=== PATIENT | male | born 1960 | race Two or more races ===

== ENCOUNTER 2019-09-06 10:38 | Inpatient (IN) | payer BC, OTHER ==
[~2019-09-06] VITALS: Ht 175.3 cm; Wt 93.2 kg
[2019-09-06] MEDS ORDERED: SODIUM CHLORIDE 0.9% 500 ML IVB ONE (11:01)
[2019-09-06 11:20] LABS: Basophils # (auto) 0.1 10 ^3/uL (0-0.2); Basophils % (auto) 0.6 % (0.0-2.0); Eosinophils # (auto) 0.2 10 ^3/uL (0-0.8); Eosinophils % (auto) 2.1 % (0.0-7.0); Hematocrit 46.6 % (41.0-53.0); Hemoglobin 16.3 g/dL (13.5-17.5); Lymphocytes # (auto) 1.7 10 ^3/uL (0.4-5.4); Lymphocytes % (auto) 16.3 % (10.0-50.0); Mean Corpuscular Hemoglobin 30.4 pg (28.0-32.0); Mean Corpuscular Volume 86.7 fL (80.0-100.0); Monocytes # (auto) 1.1 10 ^3/uL (0-1.3); Monocytes % (auto) 11.1 % (0.0-12.0); Neutrophils # (auto) 7.1 10 ^3/uL (1.6-8.6); Neutrophils % (auto) 69.9 % (37.0-80.0); Platelet Count (auto) 209 10^3/uL (140-450); Red Blood Cells 5.37 10^6/uL (4.5-5.90); Red Cell Distribution Width 12.7 % (11.8-14.3); White Blood Cell 10.2 10^3/uL (4.4-10.8)
[2019-09-06 11:40] LABS: Albumin 3.6 g/dL (3.4-5.0); Anion Gap 5 (5-15); Blood Urea Nitrogen 12 mg/dL (7-18); Carbon Dioxide 29 mmol/L (21-32); Chloride 102 mmol/L (98-107); Glucose 84 mg/dL (74-106); Lipase 80 U/L (73-393); Potassium 4.2 mmol/L (3.5-5.1); Sodium 136 mmol/L (136-145)
[2019-09-06 11:45] LABS: Alanine Aminotransferase 40 U/L (16-61); Alkaline Phosphatase 149 U/L (45-117); Aspartate Aminotransferase 21 U/L (15-37); BUN/Creatinine Ratio 15.8; Bilirubin, Total 1.9 mg/dL (0.2-1.0); GFR African American 135 mL/min; GFR Non-African American 112 mL/min; Total Protein 8.5 g/dL (6.4-8.2)
[2019-09-06] MEDS ORDERED: IOHEXOL 300 MG/ML 100ML BOTTLE IJ ONE (14:55)
[2019-09-06] MEDS ORDERED: MORPHINE SULF INJ 2 MG/ML SYRINGE 1ML IV PRN ×2 (16:15)
[2019-09-06] MEDS ORDERED: NITROGLYCERIN 0.4 MG SL TAB SL PRN (16:15)
[2019-09-06] MEDS ORDERED: ONDANSETRON HCL 4 MG/2 ML VIAL IV PRN (16:15)
[2019-09-06] MEDS: SODIUM CHLORIDE 0.9% 1,000 ML IV SCH (16:15)
[2019-09-06] MEDS ORDERED: IOHEXOL 350 MG/ML 100ML IJ ONE (16:23)
--- NOTE | 2019-09-06 18:00 | NUR ---
PATIENT RESTING IN BED. NO S/S OF DISTRESS NOTED AT THIS TIME. PATIENT O2 SATURATIONS AT 95% ON ROOM AIR. PATIENT DENIES ANY SHORTNESS OF BREATH. IV TO RAC 20 GAUGE. ON TELEMETRY #13 SR 80'S. PATIENT DENIES ANY PAIN. BED IN LOWEST LOCKED POSITION WITH CALL LIGHT WITHIN REACH.
[2019-09-06 18:45] LABS: INR 1.12 (0.9-1.15); Partial Thromboplastin Time 29.3 sec (23.64-32.05)
[2019-09-06 18:53] VITALS: BP 146/79
--- NOTE | 2019-09-06 19:35 | NUR ---
Opening Shift Note Assumed care of patient, awake and alert. No S/S of distress/SOB or pain. Instructed on POC and to call for assist PRN, will continue to monitor for changes Q1hr and PRN.
[2019-09-06] MEDS ORDERED: IBUP800T24 PO (19:59)
[2019-09-06] MEDS ORDERED: CYCL1TAB18 PO (19:59)
[2019-09-06] MEDS: ENOXAPARIN SOD 100 MG/1 ML SYRINGE SC SCH (21:34)
[2019-09-07 00:24] VITALS: BP 117/75
[2019-09-07] MEDS: SODIUM CHLORIDE 0.9% 1,000 ML IV SCH ×3 (03:38→22:29)
[2019-09-07 05:36] VITALS: BP 113/80
[2019-09-07 07:11] LABS: Potassium 3.8 mmol/L (3.5-5.1)
[2019-09-07 07:15] LABS: Albumin 2.8 g/dL (3.4-5.0); BUN/Creatinine Ratio 18.3; Calcium 8.3 mg/dL (8.5-10.1)
[2019-09-07 07:55] LABS: Bilirubin, Total 1.5 mg/dL (0.2-1.0); Total Protein 6.7 g/dL (6.4-8.2)
--- NOTE | 2019-09-07 08:00 | NUR ---
ASSESSMENT NOTE PT IS ALERT ORIENTED X4, RESTING IN BED COMFORTABLY, NO DISTRESS NOTED, ABLE TO SELF REPOSITION AND IDENTIFY HIS NEEDS, PAIN 0/10, ON BED REST, USE URINAL NEEDED
[2019-09-07 08:52] VITALS: BP 141/80
[2019-09-07] MEDS: FAMOTIDINE 20 MG TAB PO SCH (09:01)
[2019-09-07] MEDS: ENOXAPARIN SOD 100 MG/1 ML SYRINGE SC SCH (09:02)
[2019-09-07 09:48] LABS: Urine Bacteria NONE SEEN /hpf (None Seen); Urine Blood Negative /uL (Negative); Urine Specific Gravity 1.007 (1.001-1.035); Urine WBC None Seen /hpf (0 - 3)
--- NOTE | 2019-09-07 10:26 | NUR ---
URINE SAMPLE SENT TO LAB FOR UA
--- NOTE | 2019-09-07 10:30 | NUR ---
DR GROSSMAN IS HERE FOLLOWING UP ON PT WITH NEW ORDERS
--- NOTE | 2019-09-07 11:22 | NUR ---
DR LEOPOLDO ELLIOTT AT BED SIDE, FOLLOWING UP ON PT, PT HAS COLONOSCOPY ON THE PREVIOUS YEARS, REQUESTED TO CALL HIS XANDER AND FID OUT WHEN AND WHERE AND OBTAIN A COPY
--- NOTE | 2019-09-07 11:36 | NUR ---
CALLED PATIENT'S XANDER, SAID THAT SHE WILL FIND OUT THE LOCATION FOR ME AND CALL ME BACK
--- NOTE | 2019-09-07 11:50 | NUR ---
DR VILLALOBOS'AT BED SIDE FOLLOWING UP ON PT, MADE AWARE THAT TEMP IS 100.3, COOL MEASURES INITIATED, NEW ORDERS OBTAIN
[2019-09-07 13:00] VITALS: BP 137/73
--- NOTE | 2019-09-07 13:00 | NUR ---
TOLERATED LUNCH WELL, CONTINUE MONITORING
[2019-09-07] MEDS: ACETAMINOPHEN 500 MG TAB PO PRN ×2 (13:54→22:28)
[2019-09-07 17:00] VITALS: BP 125/85
--- NOTE | 2019-09-07 18:27 | NUR ---
PT IS EATING DINNER, TOLERATED WELL, AWARE THAT HE WILL BE NPO AFTER MIS NIGHT FOR LIVER BIOPSY TOMORROW
--- NOTE | 2019-09-07 19:30 | NUR ---
OPENING NOTE REPORT RECEIVED FROM DAY SHIFT RN PATIENT IS RESTING IN BED, NO S/S OF DISTRESS NOTED. POC DISCUSSED, ALL QUESTIONS ANSWERED. WILL MONITOR Q1H PRN THROUGHOUT SHIFT, CALL LIGHT WITHIN REACH.
[2019-09-07 22:00] VITALS: BP 135/68
--- NOTE | 2019-09-07 22:28 | NUR ---
TEMP PATIENT HAS A TEMP OF 100.4F COOLING MEASURES INITIATED (ICE PACKS UNDER AXILLA, ICE WATER, BLANKETS REMOVED), TYLENOL GIVEN ORDERED WILL REASSESS TEMP IN ONE HOUR
--- NOTE | 2019-09-07 23:28 | NUR ---
TEMP RECHECK TEMP NOW 99.2F. COOLING MEASURES STILL IN PLACE WILL CONTINUE TO MONITOR
--- NOTE | 2019-09-07 23:39 | NUR ---
REPORT/SBAR GIVEN TO LUISITO GIANG TO ASSUME CARE OF PATIENT PATIENT STABLE AT THIS TIME
--- NOTE | 2019-09-07 23:39 | NUR ---
Received report/SBAR from Emi. Patient sleeping at the time. No signs of distress or pain.
[2019-09-08] VITALS (21 sets, daily range): BP systolic 101–143; BP diastolic 51–91
[2019-09-08] MEDS ORDERED: LIDOCAINE 2%HCL (LOCAL ANESTH.) INJ 20ML MDV ONE (09:21)
[2019-09-08] MEDS ORDERED: GELATIN 1 SPONGE SIZE 50 TOP ONE (09:23)
[2019-09-08 09:36] LABS: INR 1.07 (0.9-1.15); Partial Thromboplastin Time 31.4 sec (23.64-32.05)
[2019-09-08 09:49] LABS: Albumin 2.8 g/dL (3.4-5.0); Calcium 8.5 mg/dL (8.5-10.1); Potassium 3.7 mmol/L (3.5-5.1)
[2019-09-08 09:52] LABS: BUN/Creatinine Ratio 12.5; Bilirubin, Total 1.1 mg/dL (0.2-1.0); Total Protein 7.5 g/dL (6.4-8.2)
[2019-09-08] MEDS: FAMOTIDINE 20 MG TAB PO SCH ×2 (10:00→18:42)
[2019-09-08] MEDS ORDERED: fentaNYL CITRATE 100 MCG/2 ML VL IV ONE (10:30)
[2019-09-08] MEDS ORDERED: MIDAZOLAM HCL 1MG/1ML-2 ML VIAL IV ONE (10:30)
--- NOTE | 2019-09-08 10:30 | NUR ---
OUT TO RADIOLOGY VIA HOSPITAL BED WITH FEI RN PT STABLE, NO DISTRESS NOTED
--- NOTE | 2019-09-08 11:00 | NUR ---
PATIENT ARRIVED IN C.T. DEPT PER BED FOR U.S. AND C.T. GUIDED BIOPSY OF LIVER MASS. PATIENT GIVEN LOCAL ANESTHETIC PER DR BENRAL. PATIENT STATES OF FEELING ANXIOUS - MUCH SUPPORT AND REASSURANCE GIVEN WELL DEEP BREATHING AND RELAXATION EXERCISES - PATIENT COMPLIANT. VS Q5MIN - SEE VITALS FLOW SHEET. PATIENT GIVEN VERSED 1MG AT 1100 IVP AND FENTANYL 50MCG IVP PER MD ORDERS. SAO2 DECREASED TO 92% AT 1125 - O2 APPLIED AT 2L PER NC - SAO2 95-97% AFTER O2 APPLIED. PROCEDURE COMPLETED AT 1140 - BANDAID APPLIED TO RUQ ABD. PATIENT GALLITO. PROCEDURE WELL UNDER MOD SEDATION. PATIENT IN STABLE CONDITION UPON RETURN TO ROOM. AT 1145 RN ACCOMPANIED PATIENT TO ROOM 246 PER BED WITH TELE MONITOR IN PLACE AND PORTABLE O2 ON @ 2L PER NC. REPORT GIVEN TO KVGN JORGE RE: PATIENT POSITIONING RIGHT SIDE DOWN AND VS Q15MIN X 1 HR AND Q3O MIN X 1 HR. SPECIMEN TAKEN TO LAB FOR PATHOLOGY TESTING.
--- NOTE | 2019-09-08 11:47 | NUR ---
PT IS BACK TO HIS ROOM VIA HOSPITAL BED, PT IS ALERT ORIENTED X4, BAND AID NOTED AT RT SIDE OF THE ABDOMEN AREA, NO SIGNS OF BLEEDING NOTED, PT INSTRUCTED TO LEAN TOWARD THE RT SIDE TO AVOID ANY BLEEDING, PER RONNY JORGE PT NEED VS Q 15 MIN X4 AND EVERY 30 X2, PT IS STABLE BUT IS FEEKING NERVOUS, REQUESTED TO CALL HIS TO ASURE HER THAT EVERYTHING IS OKAY
[2019-09-08] MEDS: SODIUM CHLORIDE 0.9% 1,000 ML IV SCH ×2 (12:00→18:15)
--- NOTE | 2019-09-08 12:05 | NUR ---
CALLED PATIENT'S XANDER , ASURE HER THAT HER IS WELL AND STABLE
--- NOTE | 2019-09-08 12:14 | NUR ---
DR VILLALOBOS AT BED SIDE FOLLOWING UP ON PT
--- NOTE | 2019-09-08 13:51 | NUR ---
PT IS SLEEPING AT HIS RT SIDE, NO DISTRESS NOTED
[2019-09-08] MEDS: ACETAMINOPHEN 500 MG TAB PO PRN (18:49)
--- NOTE | 2019-09-08 19:30 | NUR ---
OPENING NOTE REPORT RECEIVED FROM DAY SHIFT RN PATIENT IS A/OX4 RESTING IN BED. NO S/S OF DISTRESS NOTED. PATIENT IS S/P LIVER BIOPSY WITH BANDAID IN PLACE TO RIGHT UPPER ABDOMEN. NO DRAINAGE NOTED. POC DISCUSSED WITH PATIENT, ALL QUESTIONS ANSWERED. WILL MONITOR Q1HPRN THROUGHOUT SHIFT, CALL LIGHT WITHIN REACH.
[2019-09-08] MEDS: ENOXAPARIN SOD 100 MG/1 ML SYRINGE SC SCH (21:45)
[2019-09-09] MEDS: ACETAMINOPHEN 500 MG TAB PO PRN ×2 (03:44→22:20)
--- NOTE | 2019-09-09 03:44 | NUR ---
PAIN PATIENT C/O 3/10 PAIN TO RIGHT ABDOMEN AT INCISION SITE OF LIVER BIOPSY. PATIENT REQUESTED FOR TYLENOL FOR THE PAIN. TYLENOL GIVEN ORDERED. SEE EMAR FOR DETAILS WILL REASSESS IN ONE HOUR
--- NOTE | 2019-09-09 04:44 | NUR ---
PAIN REASSESSMENT PATIENT NOW COMFORTABLE, DENIES ANY PAIN
[2019-09-09 05:00] VITALS: BP 129/80
[2019-09-09] MEDS: SODIUM CHLORIDE 0.9% 1,000 ML IV SCH ×3 (05:35→23:55)
--- NOTE | 2019-09-09 07:27 | NUR ---
CLOSING PATIENT IS RESTING COMFORTABLY IN BED. NO S/S OF DISTRESS. CALL LIGHT WITHIN REACH. CARE ENDORSED TO DAYSHIFT LUISITO PASTOR
[2019-09-09 07:30] LABS: Basophils # (auto) 0 10 ^3/uL (0-0.2); Basophils % (auto) 0.6 % (0.0-2.0); Eosinophils # (auto) 0.3 10 ^3/uL (0-0.8); Eosinophils % (auto) 3.6 % (0.0-7.0); Hematocrit 42.2 % (41.0-53.0); Hemoglobin 14.8 g/dL (13.5-17.5); Lymphocytes # (auto) 1.4 10 ^3/uL (0.4-5.4); Lymphocytes % (auto) 17.2 % (10.0-50.0); Mean Corpuscular Hemoglobin 30.2 pg (28.0-32.0); Mean Corpuscular Hgb Conc. 35.2 g/dL (32.0-36.0); Monocytes # (auto) 0.8 10 ^3/uL (0-1.3); Monocytes % (auto) 10.4 % (0.0-12.0); Neutrophils # (auto) 5.4 10 ^3/uL (1.6-8.6); Neutrophils % (auto) 68.2 % (37.0-80.0); Nucleated Red Blood Cells % 0.1 %; Platelet Count (auto) 232 10^3/uL (140-450); Red Blood Cells 4.91 10^6/uL (4.5-5.90); Red Cell Distribution Width 12.4 % (11.8-14.3)
[2019-09-09 07:48] LABS: Albumin 2.9 g/dL (3.4-5.0); Calcium 9.2 mg/dL (8.5-10.1)
[2019-09-09 07:51] LABS: BUN/Creatinine Ratio 13.6; Bilirubin, Total 1.1 mg/dL (0.2-1.0); Total Protein 7.8 g/dL (6.4-8.2)
[2019-09-09 09:00] VITALS: BP 127/68
[2019-09-09] MEDS: ENOXAPARIN SOD 100 MG/1 ML SYRINGE SC SCH (10:35)
[2019-09-09] MEDS ORDERED: FAMOTIDINE 20 MG TAB PO ONE (11:15)
--- NOTE | 2019-09-09 12:15 | NUR ---
DR. ARORA AT BEDSIDE WITH PATIENT. PATIENT HAS COMPLAINTS OF BLOODY SPUTUM AND PAIN TO THE RIGHT TESTICLE.
[2019-09-09 13:00] VITALS: BP 130/61
--- NOTE | 2019-09-09 14:23 | NUR ---
PATIENT DOWN FOR ULTRASOUND
[2019-09-09 17:00] VITALS: BP 120/81
--- NOTE | 2019-09-09 19:35 | NUR ---
Opening Shift Note Assumed care of patient, awake and alert. No S/S of distress/SOB or pain. Bed in lowest locked position, side rails up x2, call light within reach. Instructed on POC and to call for assist PRN, will continue to monitor for changes Q1hr and PRN.
[2019-09-09] MEDS: ENOXAPARIN SOD 80 MG/0.8ML SYRINGE SC SCH (21:51)
[2019-09-09 22:00] VITALS: BP 119/75
--- NOTE | 2019-09-09 23:20 | NUR ---
Pain Patient reporting 5/10 pain to back, requesting Tylenol. Tylenol administered at 22:20 (see emar). Pain reassessed at this time, patient lying in bed, eyes closed, respirations even and unlabored, appears asleep, no s/s of distress. Will continue to monitor.
[2019-09-10 05:00] VITALS: BP 114/63
[2019-09-10 06:08] LABS: Basophils # (auto) 0.1 10 ^3/uL (0-0.2); Basophils % (auto) 0.7 % (0.0-2.0); Eosinophils # (auto) 0.4 10 ^3/uL (0-0.8); Eosinophils % (auto) 5.1 % (0.0-7.0); Hematocrit 41.5 % (41.0-53.0); Hemoglobin 14.5 g/dL (13.5-17.5); Lymphocytes # (auto) 1.3 10 ^3/uL (0.4-5.4); Lymphocytes % (auto) 16.6 % (10.0-50.0); Mean Corpuscular Hemoglobin 30.2 pg (28.0-32.0); Mean Corpuscular Volume 86.2 fL (80.0-100.0); Monocytes # (auto) 0.8 10 ^3/uL (0-1.3); Monocytes % (auto) 10.5 % (0.0-12.0); Neutrophils # (auto) 5.3 10 ^3/uL (1.6-8.6); Neutrophils % (auto) 67.1 % (37.0-80.0); Platelet Count (auto) 276 10^3/uL (140-450); Red Blood Cells 4.81 10^6/uL (4.5-5.90); Red Cell Distribution Width 12.5 % (11.8-14.3)
[2019-09-10 06:27] LABS: BUN/Creatinine Ratio 20.4; Calcium 9.1 mg/dL (8.5-10.1); Potassium 3.6 mmol/L (3.5-5.1)
--- NOTE | 2019-09-10 06:31 | NUR ---
Closing Note Patient lying in bed, awake and alert. No s/s of distress. Will continue to monitor and endorse care to dayshift RN.
--- NOTE | 2019-09-10 07:15 | NUR ---
Opening Note Received report from lagging machine operator RN. Patient is awake, alert and oriented x4. No signs or symptoms of distress noted a this time. Patient is on 3L NC, respirations even and unlabored, patient denies shortness of breath at this time. Reviewed plan of care with patient, patient verbalized understanding. Bed in low and locked position, call light within reach. Will continue to monitor Q1 hour and PRN.
[2019-09-10 09:00] VITALS: BP 128/68
[2019-09-10] MEDS: ENOXAPARIN SOD 80 MG/0.8ML SYRINGE SC SCH ×2 (09:40→21:14)
[2019-09-10] MEDS: FAMOTIDINE 20 MG TAB PO SCH (09:40)
--- NOTE | 2019-09-10 09:45 | NUR ---
Headache Patient is complaining of headache 4/10 and is requesting Tylenol. Will medicate per orders. Will continue to monitor Q1 hour and PRN.
[2019-09-10] MEDS: ACETAMINOPHEN 500 MG TAB PO PRN (09:47)
--- NOTE | 2019-09-10 10:30 | NUR ---
Pain Reassessment Patient denies pain at this time. Patient resting comfortably in bed, no signs or symptoms of distress noted at this time. Will continue to monitor Q1 hour and PRN.
[2019-09-10] MEDS: SODIUM CHLORIDE 0.9% 1,000 ML IV SCH ×2 (11:52→13:41)
[2019-09-10] MEDS ORDERED: levoFLOXacin 750MG 150 ML IV ONE (13:00)
[2019-09-10 14:02] VITALS: BP 125/69
[2019-09-10 17:00] VITALS: BP 119/81
--- NOTE | 2019-09-10 17:59 | NUR ---
Respiratory culture collected and sent to lab
[2019-09-10] MEDS: HYDROcodone-ACET 5/325MG TAB PO PRN (18:03)
--- NOTE | 2019-09-10 18:03 | NUR ---
Pain Patient complains of pain 8/10 to groin after ambulating and is requesting pain medications. Will medicate per orders.
--- NOTE | 2019-09-10 18:30 | NUR ---
Patient ambulated Patient ambulated to restroom, gait steady. Patient denies shortness of breath at this time. Will continue to monitor Q1 hour and PRN.
--- NOTE | 2019-09-10 18:37 | NUR ---
IV Insertion IV access obtained, via clean sterile technique by inserting 22 gauge catheter to the left hand. IV secured properly. No trauma to site. Patient tolerated well. Will continue to monitor Q1 hour and PRN.
--- NOTE | 2019-09-10 18:38 | NUR ---
IV Removed IV removed from right AC with sterile technique, catheter fully intact. Pressure dressing applied to site. Patient tolerated procedure well. Will continue to monitor Q1 hour and PRN.
--- NOTE | 2019-09-10 19:03 | NUR ---
Pain reassessment Patient resting in bed comfortably, states pain is now 2/10. Will continue to monitor.
--- NOTE | 2019-09-10 19:05 | NUR ---
Closing Note Report given to restaurant shift supervisor RN. No signs or symptoms of distress noted at this time.
[2019-09-10 22:00] VITALS: BP 126/71
[2019-09-11] MEDS: SODIUM CHLORIDE 0.9% 1,000 ML IV SCH ×2 (03:18→17:36)
[2019-09-11] MEDS: HYDROcodone-ACET 5/325MG TAB PO PRN ×3 (04:07→20:43)
[2019-09-11 05:00] VITALS: BP 124/64
--- NOTE | 2019-09-11 05:07 | NUR ---
Pain Patient reporting 6/10 pain to urethral area. Brutus administered at 04:07 (see emar). Pain reassessed at this time, patient lying in bed, eyes closed, respirations even and unlabored, appears asleep, no s/s of distress. Will continue to monitor. Addendum: 09/11/19 at 3466 by SCOTT LICONA RN RN CORRECTION: Back and leg pain after ambulation.
--- NOTE | 2019-09-11 06:31 | NUR ---
Closing Note Patient lying in bed, eyes closed, respirations even and unlabored, appears asleep. No s/s of distress. Will continue to monitor and endorse care to dayshift RN.
--- NOTE | 2019-09-11 07:48 | NUR ---
Opening Note Assumed pt care from [facility] nurse. Pt is a/ox4 with no s/s of distress or SOB. Pt is currently sitting upright in bed with no complaints at this time. Pt is currently on 1.5L NC. Discussed POC with pt; pt verbalized understanding. Safety measures maintained with call light within reach, bed in lowest position and side rails up. Will continue to monitor for changes.
[2019-09-11 09:00] VITALS: BP 124/84
[2019-09-11] MEDS: levoFLOXacin 750MG 150 ML IV SCH (09:48)
[2019-09-11] MEDS: ENOXAPARIN SOD 80 MG/0.8ML SYRINGE SC SCH ×2 (09:48→22:00)
[2019-09-11] MEDS: FAMOTIDINE 20 MG TAB PO SCH (09:48)
--- NOTE | 2019-09-11 09:56 | NUR ---
Dr Hinkle at Bedside MD to see pt. Discussed POC with pt. No new orders. Will continue to monitor.
[2019-09-11 13:00] VITALS: BP 136/80
--- NOTE | 2019-09-11 14:36 | NUR ---
Nutrition Assessment Notes Please refer to link for full assessment notes. Est energy needs: 5954-1295 kcals (17-20 kcal/kgBW) Est protein needs: 62-78 gms/day (0.8-1.0 gm/kgBW) Will continue to monitor and reassess prn. Addendum: 09/11/19 at [address] Amended: Links added.
[2019-09-11 17:00] VITALS: BP 119/76
--- NOTE | 2019-09-11 21:43 | NUR ---
Pain Patient reporting 6/10 pain to back and legs after ambulating from bathroom. [place] administered at 20:43 (see emar). Pain reassessed at this time, patient lying in bed, eyes closed, respirations even and unlabored, appears asleep, no s/s of distress. Will continue to monitor.
[2019-09-11 22:00] VITALS: BP 135/73
[2019-09-12 05:00] VITALS: BP 133/82
[2019-09-12 07:28] LABS: Basophils # (auto) 0.1 10 ^3/uL (0-0.2); Basophils % (auto) 0.9 % (0.0-2.0); Eosinophils # (auto) 0.4 10 ^3/uL (0-0.8); Eosinophils % (auto) 7.1 % (0.0-7.0); Hematocrit 39.8 % (41.0-53.0); Hemoglobin 14.2 g/dL (13.5-17.5); Lymphocytes % (auto) 17.3 % (10.0-50.0); Mean Corpuscular Hemoglobin 30.7 pg (28.0-32.0); Mean Corpuscular Hgb Conc. 35.7 g/dL (32.0-36.0); Mean Corpuscular Volume 86.2 fL (80.0-100.0); Monocytes # (auto) 0.6 10 ^3/uL (0-1.3); Monocytes % (auto) 9.8 % (0.0-12.0); Neutrophils # (auto) 3.8 10 ^3/uL (1.6-8.6); Neutrophils % (auto) 64.9 % (37.0-80.0); Nucleated Red Blood Cells % 0.1 %; Platelet Count (auto) 307 10^3/uL (140-450); Red Blood Cells 4.62 10^6/uL (4.5-5.90); Red Cell Distribution Width 12.3 % (11.8-14.3); White Blood Cell 5.9 10^3/uL (4.4-10.8)
--- NOTE | 2019-09-12 08:30 | NUR ---
OPENING SHIFT NOTE: PATIENT A/OX4 AWAKE, RESTING IN BED. UPDATED ON PLAN OF CARE. PATIENT ACTIVE IN PLANNING CARE AND SELF-CARE. FALL PRECAUTIONS IN PLACE. EDUCATED USE OF CALL LIGHT. PATIENT RETURNED DEMONSTRATION. WILL CONTINUE TO MONITOR.
[2019-09-12 08:36] VITALS: BP 125/79
[2019-09-12] MEDS: HYDROcodone-ACET 5/325MG TAB PO PRN ×2 (09:05→20:23)
[2019-09-12] MEDS: levoFLOXacin 750MG 150 ML IV SCH (09:05)
[2019-09-12] MEDS: ENOXAPARIN SOD 80 MG/0.8ML SYRINGE SC SCH (09:05)
[2019-09-12] MEDS: FAMOTIDINE 20 MG TAB PO SCH (09:05)
[2019-09-12] MEDS: SODIUM CHLORIDE 0.9% 1,000 ML IV SCH (09:06)
[2019-09-12 13:00] VITALS: BP 133/77
--- NOTE | 2019-09-12 14:51 | NUR ---
assessment Patient is a 59 year old male who is alert and oriented. Patients cognitive abilities are intact. Prior to admission patient lived home with his Fabiola and functioned independently. Patient informed me he is able to care for his own ADLs. Per patient he will return home to his prior living arrangements post discharge and family will transport him home. Patients PCP is Dr Duong. Patient has a fww for home use. Patient informed me this is a new diagnosis for liver mass. Patient is waiting on biopsy results now. Patients post discharge needs to be determined prior to discharge. I informed patient he has a right to speak to a social security assessor regarding all care. I informed patient he has a right to participate in any and all discharge planning. Patient does not have a POA and advanced directive. I have offered patient information on POA and advanced directives. I informed the patient the advantages and benefits of having an Advanced Directive. Patient verbalized understanding and agreed to discharge plan. Addendum: 09/12/19 at 1453 by Anne Marie HARDEN Amended: Links added.
[2019-09-12 17:00] VITALS: BP 125/85
--- NOTE | 2019-09-12 19:10 | NUR ---
CARE ENDORSED TO MICHAEL JORGE.
--- NOTE | 2019-09-12 19:29 | NUR ---
Opening Shift Note Assumed care of patient, awake and alert x 4. No S/S of distress/SOB. Bed is in lowest position and locked. Call light within reach. Board updated. Instructed on POC and to call for assist PRN, will continue to monitor for changes Q1hr and PRN.
[2019-09-12] MEDS: APIXABAN 5 MG TAB PO SCH (21:31)
[2019-09-12 22:00] VITALS: BP 120/66
[2019-09-13 05:00] VITALS: BP 119/69
--- NOTE | 2019-09-13 07:28 | NUR ---
OPENING SHIFT NOTE: PATIENT ASLEEP IN BED, EASILY AWOKEN. A/OX4 RESPIRATIONS EVEN AND UNLABORED, UPDATED ON PLAN OF CARE. CALL LIGHT WITHIN REACH, FLOORS FREE OF CLUTTER. WILL CONTINUE TO MONITOR.
[2019-09-13 09:00] VITALS: BP 128/74
[2019-09-13] MEDS: APIXABAN 5 MG TAB PO SCH (09:30)
[2019-09-13] MEDS: FAMOTIDINE 20 MG TAB PO SCH (09:30)
[2019-09-13] MEDS: HYDROcodone-ACET 5/325MG TAB PO PRN (09:30)
--- NOTE | 2019-09-13 09:42 | NUR ---
PATIENT EDUCATION: PATIENT GIVEN ALL EDUCATION MATERIALS/INSTRUCTIONS. PATIENT DEMONSTRATING DIFFICULTY UNDERSTANDING CURRENT HEALTH CONDITION AND CONTINUES TO ASK MANY QUESTIONS, DESPITE EDUCATING PATIENT UNABLE TO COMPREHEND AT THIS TIME. PATIENT EXPRESSED BEING ABLE TO READ, AND ENJOYS READING. [id number] PACKETS GIVEN TO PATIENT AND REVIEWED WITH THIS RN.
[2019-09-13 12:45] VITALS: BP 122/73
--- NOTE | 2019-09-13 13:42 | NUR ---
DISCHARGE: PATIENT GIVEN ALL EDUCATION MATERIALS, EDUCATED ON FOLLOW UP APPOINTMENT WITH DR. COLLINS, HIGHLIGHTED INFORMATION AND REVIEWED WITH THE PATIENT. IV DISCONTINUED MANUAL PRESSURE APPLIED. PATIENT AMBULATED WITH THIS RN DOWN TO MAIN LOBBY WITH ALL BELONGINGS AND EVEN/UNLABORED RESPIRATIONS. PATIENT INFORMED HE HAS A WAIT TIME OF 30 MIN FOR PRESCRIPTIONS TO BE FILLED. PATIENT WAITING FOR /RIDE HOME AND MEDS IN THE MAIN LOBBY.
[2019-09-20] MEDS ORDERED: APIXABAN 5 MG TAB PO SCH (22:00)
== END 2019-09-13 13:55 | disposition home or self-care (01) | DRG 435 ==
LOC: ER 10:38 → TELE 10:39 → TELE-EAST 17:54 → EAST 09-12 13:41
PROVIDERS: ADMIT Nurse Practitioner Acute Care; ATTEND Internal Medicine
PROC: 0FB13ZX Excision of Right Lobe Liver, Percutaneous Approach, Diagnostic (ICD-10-PCS; principal; 2019-09-08)
DX: C24.9 Malignant neoplasm of biliary tract, unspecified (principal); I26.99 Other pulmonary embolism without acute cor pulmonale; C25.9 Malignant neoplasm of pancreas, unspecified; I82.442 Acute embolism and thrombosis of left tibial vein; C79.89 Secondary malignant neoplasm of other specified sites; R91.1 Solitary pulmonary nodule; E66.9 Obesity, unspecified; Z79.01 Long term (current) use of anticoagulants; Z68.30 Body mass index [BMI] 30.0-30.9, adult; Z83.3 Family history of diabetes mellitus
CPT/HCPCS: 10022; 36415; 71045; 71275; 74150; 74177; 76700; 76870; 76942; 77012; 80048; 80053; 81001; 82140; 82378; 83615; 83690; 84154; 84443; 84484; 85025; 85379; 85384; 85610; 85730; 86301; 87070; 87205; 93970; G0378; J1956; J2250